=== PATIENT | male | born 1965 | race African-American/Black ===

== ENCOUNTER 2021-03-05 10:46 | Emergency (ER) | payer OTHER ==
[2021-03-05] MEDS ORDERED: NA CHLORIDE 0.9% 1,000 ML ONE ×2 (11:15→12:43)
--- NOTE | 2021-03-05 11:18 | RAD REPORT ---
EXAM DESCRIPTION: RAD - Chest Single View - 03/05/2021 11:01 am CLINICAL HISTORY: hypotension COMPARISON: No comparisons FINDINGS: Lines: None. Lungs: No evidence of edema or pneumonia. Pleural: No significant pleural effusions or pneumothorax. Cardiac: The heart size is within normal limits. Bones: No acute fractures. Other: IMPRESSION: No acute cardiopulmonary disease.
[2021-03-05 11:19] LABS: Basophils % 0.7 % (0-1.3); Hematocrit 42.9 % (39.6-49.0); Lymphocytes % 18.2 % (15.3-44.8); MPV 7.6 fL (7.6-11.3); RBC Red Blood Cell Count 5.99 M/uL (4.33-5.43)
[2021-03-05 12:02] LABS: Blood Morphology Comment NOTED (NOT SEEN); Hypochromasia 1+; Platelet Estimate ADEQ; White Blood Cell Scan OK (OK)
[2021-03-05 12:09] LABS: BUN Blood Urea Nitrogen 27 mg/dL (7-18); Bicarbonate 22 mmol/L (21-32); Glucose Level 652 mg/dL (74-106); Sodium Level 129 mmol/L (136-145)
[2021-03-05 12:10] LABS: Potassium 6.3 mmol/L (3.5-5.1)
[2021-03-05] MEDS ORDERED: INSULIN -REGULAR HUMAN 50 UNIT/0.5 ML ML ONE ×2 (12:43→17:44)
[2021-03-05] MEDS ORDERED: CALCIUM GLUCONATE 1 GM IVPB 1 GM/50 ML BAG IV ONE (12:43)
--- NOTE | 2021-03-05 12:48 | EDPHYS ---
Physician Documentation [facility] Name: Lio Bae Jr Age: 55 yrs Sex: Male : 1965 Arrival Date: 03/05/2021 Time: 10:47 Bed 4 Private MD: ED Physician Yang Lovett HPI: 03/05 11:06 This 55 yrs old Black Male presents to ER via EMS with complaints of High blood sugar, rn low blood pressure. 11:06 The patient or guardian reports generalized weakness, hyperglycemia, that was rn potentially precipitated by. Onset: The symptoms/episode began/occurred at an unknown time. Associated signs and symptoms: Pertinent positives: diaphoresis, polydipsia, polyphagia, polyuria, Pertinent negatives: decreased urine output, seizure activity. Current symptoms: In the emergency department the patient's symptoms are unchanged from the initial presentation. The patient has not experienced similar symptoms in the past. The patient has not recently seen a physician. Patient reports a few days of not feeling well, with lightheadedness and fatigue, increased urinary frequency and thirst. Does not feel ill or feverish. Denies any cough or shortness of breath. Denies any blood in the stool. Denies history of diabetes. EMS states glucose of 600 and borderline low blood pressure which is responded to normal saline infusion.. Historical: - Allergies: 10:54 No Known Allergies; ap3 - Home Meds: 10:54 aspirin 81 mg Oral tab 81 mg daily [Active]; atorvastatin 20 mg oral tab 1 tab once ap3 daily [Active]; carvedilol 25 mg oral tab 1 tab 2 times per day [Active]; diltiazem HCl 180 mg Oral Tb24 1 tab once daily [Active]; hydralazine 25 mg Oral tab 1 tab 3 times daily [Active]; lisinopril 40 mg Oral tab 1 tab once daily [Active]; omeprazole 20 mg Oral cpDR 1 cap 2 times per day [Active]; spironolactone 25 mg Oral tab 1 tab 2 times per day [Active]; terazosin 1 mg oral cap 1 cap nightly [Active]; - PMHx: 10:54 Anemia; Hypertensive disorder; hyperlipidemia; Gastroesophageal reflux disease; Obesity;ap3 - Immunization history:: Client reports receiving the 2nd dose of the Covid vaccine. - Social history:: Smoking status: Patient/guardian denies using tobacco, the patient reports quitting approximately 2 years ago. - Family history:: not pertinent. - Hospitalizations: : No recent hospitalization is reported. ROS: 11:06 Constitutional: Negative for fever, chills, and weight loss, Eyes: Negative for injury, rn pain, redness, and discharge, Neck: Negative for injury, pain, and swelling, Cardiovascular: Negative for chest pain, palpitations, and edema, Respiratory: Negative for shortness of breath, cough, wheezing, and pleuritic chest pain, Abdomen/GI: Negative for abdominal pain, nausea, vomiting, diarrhea, and constipation, Back: Negative for injury and pain, : Positive for polyuria MS/Extremity: Negative for injury and deformity, Skin: Negative for injury, rash, and discoloration, Neuro: Negative for headache, numbness, tingling, and seizure, Endocrine: Positive for polyuria and polydipsia Exam: 11:06 Constitutional: This is a well developed, well nourished patient who is awake, alert, rn and in no acute distress. Head/Face: Normocephalic, atraumatic. Eyes: Periorbital areas with no swelling, redness, or edema. ENT: Dry mucous membranes Cardiovascular: Regular rate and rhythm. No pulse deficits. Respiratory: No increased work of breathing, no retractions or nasal flaring. Abdomen/GI: Soft, non-tender Skin: Warm, dry MS/ Extremity: Pulses equal, no cyanosis. Neuro: Awake and alert, GCS 15, oriented to person, place, time, and situation. Vital Signs: 10:50 BP 140 / 108; Pulse 56; Resp 19; Temp 97.6; Pulse Ox 97% on R/A; Weight 122.47 kg (R); ap3 Height 5 ft. 11 in. (180.34 cm) (R); 12:30 BP 111 / 41; Pulse 49; Resp 17; Pulse Ox 99% on R/A; mt 12:56 BP 118 / 59; Pulse 52; Resp 17; Pulse Ox 98% on R/A; mt 13:50 BP 135 / 73; Pulse 45; Resp 17; Pulse Ox 99% on R/A; ld1 15:17 BP 129 / 70; Pulse 46; Resp 16; Pulse Ox 99% on R/A; ld1 10:50 Body Mass Index 37.66 (122.47 kg, 180.34 cm) ap3 MDM: 10:47 Patient medically screened. rn 12:45 Differential diagnosis: DKA, hyperglycemia, new onset diabetes, acute kidney failure, rn hyperkalemia. Data reviewed: vital signs, nurses notes, lab test result(s), EKG, radiologic studies, plain films, and as a result, I will admit patient. Data interpreted: telemetry monitor: rate is 56 beats/min, rhythm is sinus bradycardia, with no ectopy, Interpretation: bradycardia, Pulse oximetry: on room air is 97 %. Interpretation: normal. Counseling: I had a detailed discussion with the patient and/or guardian regarding: the historical points, exam findings, and any diagnostic results supporting the discharge/admit diagnosis, lab results, radiology results, the need for further work-up and treatment in the hospital, the need to transfer to another facility, inmate, needs to transfer to [facility]. Response to treatment: the patient's symptoms have mildly improved after treatment, and as a result, I will admit patient. ED course: Patient with hyperglycemia and no acidosis, acute renal failure, hyperkalemia likely explaining his bradycardia. Patient will have to be admitted but is inmate, will contact managed care for transfer to [facility].. 03/05 10:48 Order name: CBC with Diff; Complete Time: 12:13 03/05 10:48 Order name: Basic Metabolic Panel; Complete Time: 12:13 03/05 10:48 Order name: Urine Culture 03/05 10:48 Order name: Urine Microscopic Only; Complete Time: 17:00 03/05 10:48 Order name: Ketone, Serum; Complete Time: 12:13 rn 03/05 10:48 Order name: Lactate; Complete Time: 12:13 03/05 10:48 Order name: Osmolality, Serum; Complete Time: 13:30 03/05 10:49 Order name: Blood Culture Adult (2) 03/05 11:03 Order name: Glucose, Ancillary Testing; Complete Time: 11:20 EDIA 03/05 12:02 Order name: CBC Smear Scan; Complete Time: 12:13 EDIA 03/05 12:25 Order name: SARS-COV-2 RT PCR; Complete Time: 12:40 EDIA 03/05 14:12 Order name: Urine Dipstick-Ancillary; Complete Time: 17:00 EDMS 03/05 16:17 Order name: Glucose, Ancillary Testing; Complete Time: 17:00 EDMS 03/05 10:48 Order name: IV Start; Complete Time: 10:50 rn 03/05 10:48 Order name: Urine Dipstick-Ancillary (obtain specimen); Complete Time: 14:18 rn 03/05 10:48 Order name: Glucose Level; Complete Time: 11:09 rn 03/05 10:49 Order name: XRAY Chest (1 view); Complete Time: 11:20 rn 03/05 11:30 Order name: EKG; Complete Time: 11:31 ss 03/05 11:30 Order name: EKG - Nurse/Tech; Complete Time: 11:54 ss 03/05 17:01 Order name: BMP rn Administered Medications: 11:00 Drug: NS 0.9% 1000 ml Route: IV; Rate: 1000 ml; Site: left antecubital; 12:29 Drug: Insulin Regular Human 10 units {Co-Signature: ap3 (Jocy Boss RN).} Route: ld1 Sub-Q; Site: left upper arm; 12:29 Drug: Calcium Gluconate 1 grams Route: IVPB; Infused Over: 60 mins; Site: left ll1 antecubital; 12:29 Drug: Sodium Bicarbonate 1 amp Route: IVP; Site: left antecubital; [facility] 12:30 Drug: NS 0.9% 1000 ml Route: IV; Rate: 1000 ml; Site: left antecubital; ld1 17:20 Drug: Insulin Regular Human 5 units {Co-Signature: ll1 (Tia Daniels RN).} Route: ld1 Sub-Q; Site: left upper arm; 17:54 Follow up: Response: No adverse reaction ld1 Disposition Summary: 03/05/21 12:47 Transfer Ordered Transfer Location: [facility] rn Reason: Higher level of care rn Condition: Stable rn Problem: new rn Symptoms: have improved rn Accepting Physician: (03/05/21 17:55) ld1 Diagnosis - Hyperglycemia, unspecified rn - Acute kidney failure, unspecified rn - Hyperkalemia rn Forms: - Medication Reconciliation Form rn - SBAR form hand pattern marker time excluding procedures: 12:45 Critical care time: Bedside Care: 30 minutes, Consultation: 5 minutes. Total time: 35 rn minutes Signatures: Dispatcher [employer] EDMS Yang Lovett MD MD rn Smirch, Shelby, RN RN ss Prokisch, Amanda, RN RN ap3 Tia Daniels RN RN ll1 Jacqui Carl RN RN ld1 Jocy Boss RN ap3 Tia Daniels RN ll1 Corrections: (The following items were deleted from the chart) 11:31 10:49 CORONAVIRUS+MR.LAB.BRZ ordered. EDIA EDMS 17:55 12:47 Dr. hernandez ld1
--- NOTE | 2021-03-05 12:48 | ER ---
Nurse's Notes [facility] Name: Lio Bae Jr Age: 55 yrs Sex: Male : 1965 Arrival Date: 03/05/2021 Time: 10:47 Bed 4 Private MD: Diagnosis: Hyperglycemia, unspecified;Acute kidney failure, unspecified;Hyperkalemia Presentation: 03/05 10:50 Chief complaint: EMS states: they were called to a local snf for a patient that was ap3 hypotensive with low heart rate. upon arrival patient told EMS that he was dizzy and felt weak. Patients BGL on EMS arrival was +500. EMS initiated 18g in the left AC and started NS. A total of 600ml NS was given. Coronavirus screen: At this time, the client does not indicate any symptoms associated with coronavirus-19. Ebola Screen: No symptoms or risks identified at this time. Initial Sepsis Screen: Does the patient meet any 2 criteria? No. Patient's initial sepsis screen is negative. Does the patient have a suspected source of infection? No. Patient's initial sepsis screen is negative. Risk Assessment: Do you want to hurt yourself or someone else? Patient reports no desire to harm self or others. Onset of symptoms was March 05, 2021. Care prior to arrival: Medication(s) given: Normal saline infusion, 600 IV initiated. 18 GA, in the left antecubital area. 10:50 Method Of Arrival: EMS: [facility] ap3 10:50 Acuity: ANDIE 3 ap3 Historical: - Allergies: 10:54 No Known Allergies; ap3 - Home Meds: 10:54 aspirin 81 mg Oral tab 81 mg daily [Active]; atorvastatin 20 mg oral tab 1 tab once ap3 daily [Active]; carvedilol 25 mg oral tab 1 tab 2 times per day [Active]; diltiazem HCl 180 mg Oral Tb24 1 tab once daily [Active]; hydralazine 25 mg Oral tab 1 tab 3 times daily [Active]; lisinopril 40 mg Oral tab 1 tab once daily [Active]; omeprazole 20 mg Oral cpDR 1 cap 2 times per day [Active]; spironolactone 25 mg Oral tab 1 tab 2 times per day [Active]; terazosin 1 mg oral cap 1 cap nightly [Active]; - PMHx: 10:54 Anemia; Hypertensive disorder; hyperlipidemia; Gastroesophageal reflux disease; Obesity;ap3 - Immunization history:: Client reports receiving the 2nd dose of the Covid vaccine. - Social history:: Smoking status: Patient/guardian denies using tobacco, the patient reports quitting approximately 2 years ago. - Family history:: not pertinent. - Hospitalizations: : No recent hospitalization is reported. Screenin:01 Abuse screen: Denies threats or abuse. Nutritional screening: No deficits noted. ap3 Tuberculosis screening: No symptoms or risk factors identified. Fall Risk No fall in past 12 months (0 pts). No secondary diagnosis (0 pts). IV access (20 points). Ambulatory Aid- None/Bed Rest/Nurse Assist (0 pts). Gait- Weak (10 pts.). Mental Status- Oriented to own ability (0 pts). Total Rubin Fall Scale indicates Low Risk Score (25-44 pts). Fall prevention measures have been instituted. Side Rails Up X 2 Placed close to Nursing Station Frequent Obs/Assesments occuring As available Patient and Family Educated on Fall Prevention Program and strategies. Assessment: 11:00 General: Appears in no apparent distress. comfortable, in police custody. Behavior is ap3 calm, cooperative. Pain: Denies pain. Neuro: Level of Consciousness is awake, alert, obeys commands, Oriented to person, place, time, situation, Appropriate for age Moves all extremities. Speech is normal. Cardiovascular: Denies chest pain, shortness of breath, Rhythm is sinus bradycardia. Respiratory: Airway is patent Respiratory effort is even, unlabored, Respiratory pattern is regular, symmetrical. GI: No signs and/or symptoms were reported involving the gastrointestinal system. : Reports increased urination. 11:10 Reassessment: patient provided with urinal for urine college along with education in ap3 collection technique. patient verbalized understanding. 13:00 Reassessment: Patient appears in no apparent distress at this time. Patient and/or ld1 family updated on plan of care and expected duration. Pain level reassessed. Patient is alert, oriented x 3, equal unlabored respirations, skin warm/dry/pink. Vital Signs: 10:50 BP 140 / 108; Pulse 56; Resp 19; Temp 97.6; Pulse Ox 97% on R/A; Weight 122.47 kg (R); ap3 Height 5 ft. 11 in. (180.34 cm) (R); 12:30 BP 111 / 41; Pulse 49; Resp 17; Pulse Ox 99% on R/A; mt 12:56 BP 118 / 59; Pulse 52; Resp 17; Pulse Ox 98% on R/A; mt 13:50 BP 135 / 73; Pulse 45; Resp 17; Pulse Ox 99% on R/A; ld1 15:17 BP 129 / 70; Pulse 46; Resp 16; Pulse Ox 99% on R/A; ld1 10:50 Body Mass Index 37.66 (122.47 kg, 180.34 cm) ap3 ED Course: 10:47 Patient arrived in ED. rn 10:47 Yang Lovett MD is Attending Physician. rn 10:50 Jocy Boss, LAQUITA is Primary Nurse. ap3 10:53 Triage completed. ap3 11:00 COVID swab sent to lab. ap3 11:00 Maintain EMS IV. Dressing intact. Good blood return noted. Site clean \T\ dry. Gauge \T\ ss site: 18 gauge in L AC. 11:01 Arm band placed on right wrist. ap3 11:02 XRAY Chest (1 view) In Process Unspecified. EDMS 11:02 Patient has correct armband on for positive identification. Bed in low position. Call ap3 light in reach. Side rails up X2. Security at bedside. patient monitor on. Pulse ox on. NIBP on. Sitter at bedside. Door closed. 11:10 Missed attempt(s): 22 gauge in right hand. Bleeding controlled, band aid applied, ss catheter tip intact. 12:48 contacted managed care to initiate transfer. mt 14:18 Urine Microscopic Only Sent. mt 14:18 Urine Culture Sent. mt 15:12 Managed Care notified LAQUITA Osman that [facility] will be tranferring the patient at mt 1900. 17:54 No provider procedures requiring assistance completed. Patient transferred, IV remains ld1 in place. Administered Medications: 11:00 Drug: NS 0.9% 1000 ml Route: IV; Rate: 1000 ml; Site: left antecubital; ss 12:29 Drug: Insulin Regular Human 10 units {Co-Signature: ap3 (Jocy Boss RN).} Route: ld1 Sub-Q; Site: left upper arm; 12:29 Drug: Calcium Gluconate 1 grams Route: IVPB; Infused Over: 60 mins; Site: left ll1 antecubital; 12:29 Drug: Sodium Bicarbonate 1 amp Route: IVP; Site: left antecubital; ll1 12:30 Drug: NS 0.9% 1000 ml Route: IV; Rate: 1000 ml; Site: left antecubital; ld1 17:20 Drug: Insulin Regular Human 5 units {Co-Signature: ll1 (Tia Daniels RN).} Route: ld1 Sub-Q; Site: left upper arm; 17:54 Follow up: Response: No adverse reaction ld1 Outcome: 12:47 ER care complete, transfer ordered by . rn 17:54 Transferred by ground EMS to [facility]. ld1 17:54 Condition: stable 17:54 Instructed on the need for transfer. 17:55 Patient left the ED. ld1 Signatures: Dispatcher [employer] EDMS Yang Lovett MD MD rn Smirch, Shelby, RN RN ss Thompson, Moriah mt Prokisch, Amanda, RN RN ap3 Tia Daniels RN RN [facility] Jacqui Carl RN RN ld Jocy Boss RN ap3 Tia Daniels RN [facility] Corrections: (The following items were deleted from the chart) 11:09 11:02 Patient has correct armband on for positive identification. Bed in low position. ss Call light in reach. Side rails up X2. Security at bedside. ap3 11:10 11:09 Maintain EMS IV. Dressing intact. Good blood return noted. Site clean \T\ dry. ss Gauge \T\ site: 18 gauge in L AC. ss
[2021-03-05 14:12] LABS: Urine Blood Trace-lysed (Negative); Urine Glucose 3+ (Negative); Urine Protein Negative (Negative); Urine pH 5.5 (5.0-7.0)
[2021-03-05 14:43] LABS: Urine Bacteria <20 /HPF (NONE SEEN); Urine Mucus LIGHT /HPF (NONE SEEN); Urine RBC <5 /HPF (NONE SEEN)
[2021-03-05 18:04] VITALS: TEMP 97.6
[2021-03-05 18:08] VITALS: O2SAT 99
[2021-03-05 18:09] VITALS: BP 129/70
--- NOTE | 2021-03-06 10:42 | EKG ---
Test Date: 2021-03-05 Test Time: 11:54:42 Dye Feeder: CARLEE MEASUREMENT RESULTS: Intervals: Rate: 45 MT: 216 QRSD: 106 QT: 472 QTc: 408 [place]: P: 9 MT: 216 QRS: 45 T: -9 INTERPRETIVE STATEMENTS: Marked sinus bradycardia with 1st degree AV block T wave abnormality, consider inferior ischemia Abnormal ECG No previous ECG available for comparison Electronically Signed On 03-06-21 10:40:03 CDT by Stuart Bernardo
== END 2021-03-05 17:55 | disposition short-term general hospital (02) ==
LOC: ER 10:46
DX: R73.9 Hyperglycemia, unspecified (principal); N17.9 Acute kidney failure, unspecified; E87.5 Hyperkalemia; I10 Essential (primary) hypertension; Z20.822 Contact with and (suspected) exposure to COVID-19; Z79.82 Long term (current) use of aspirin
CPT/HCPCS: 93005; 87040 ×2; 87088; 85025; 87086; 80048 ×2; 36415; 82010; 82947 ×2; 83605; 83930; 71045; 96375; 96372; 96374; 99285; U0003; 81003; 81015; J0610; J7030